=== PATIENT | female | born 1985 | race Caucasian/White ===

== ENCOUNTER 2016-08-03 09:22 | Inpatient (IN) | payer BC, MEDICAID ==
[2016-08-03] MEDS ORDERED: Lactated Ringers 1,000 ML IV SCH (10:00)
[2016-08-03] MEDS ORDERED: Ondansetron 4 MG/2 ML SDV IVPUSH PRN (10:26)
[2016-08-03] MEDS ORDERED: Penicillin G Potassium 5 MILLUNITS in Sodium Chloride 0.9% 100 ML IV ONE ×2 (11:00)
[2016-08-03] MEDS ORDERED: Lanolin 100% Cream 40 GM Tube TOP PRN (12:02)
[2016-08-03] MEDS ORDERED: Acetaminophen/oxyCODONE 325-5 MG Tab PO PRN (12:02)
[2016-08-03] MEDS ORDERED: Acetaminophen 325 MG Tab PO PRN (12:02)
--- NOTE | 2016-08-03 12:16 | PCM.LDHP ---
L&D History of Present Illness - General Date of Service: 08/03/16 (labor) Admit Problem/Dx: Patient Status Order with Admit Dx/Problem 08/03/16 12:03 Patient Status [ADT] Routine Patient Status: Admit to Inpatient Admission Diagnosis/Problem: Reason for Admit: labor Nurse Unit Type: Labor and Delivery Admitting Physician: Sharon Gudino Attending Physician: Sharon Gudino Admission Diagnosis/Problem Admission Diagnosis/Problem Source of Information: Patient History Limitations: Reports: No limitations - History of Present Illness Introduction:: This 30 year old G1 who is 36 1/7 weeks gestation present to clinic for follow up on BPP nad concerns for IUGR. Has GDM well controlled and is a smoker. Had been smith since early AM and contractions are painful. Ultrasound showed fetus to be in the 10% for growth measures 6 weeks less than gestational age. On cervical exam 375/0 smith every 3-4 monitor for labor. Discussed case with Dr. Christopher and she will attend as needed. GBS swab done at clinic. Will cover with antibiotics. Timing/Duration: Reports: minutes: (3-4) Location, : Reports: Lower back Quality: Reports: Ache, Pressure Severity: severe Improves with: Reports: None Worsens with: Reports: None - Related Data Allergies/Adverse Reactions: Allergies Allergy/AdvReac Type Severity Reaction Status Date / Time No Known Allergies Allergy Verified 08/03/16 09:37 Home Medications: Home Meds Cinnamon Bark [Cinnamon] 500 mg PO DAILY 08/03/16 [History] Ergocalciferol (Vitamin D2) [Vitamin D] 400 unit PO DAILY 08/03/16 [History] PNV95/Ferrous Fumarate/FA [Prenavite Tablet] 1 each PO DAILY 08/03/16 [History] Past Medical History [employer] History: Reports: Polycystic Ovaries, : 1 Para: 0 LMP (Approximate): ([facility] 09/01/16) Endocrine/Metabolic History: Reports: Diabetes, gestational - Past Surgical History HEENT Surgical History: Reports: Adenoidectomy, Tonsillectomy Other Respiratory Surgeries/Procedures: smoker; 3-4 cigs/day H&P Review of Systems - Review of Systems: Review Of Systems: See Below General: Reports: no symptoms HEENT: Reports: no symptoms Pulmonary: Reports: no symptoms Cardiovascular: Reports: no symptoms Gastrointestinal: Reports: No symptoms, Other (blood pressure up and being monitored) Genitourinary: Reports: no symptoms Musculoskeletal: Reports: no symptoms Skin: Reports: no symptoms Psychiatric: Reports: no symptoms Neurological: Reports: no symptoms Hematologic/Lymphatic: Reports: no symptoms Immunologic: Reports: no symptoms L&D Exam - Exam Exam: See Below - Vital Signs Weight: 163 lb - OB Specific Contraction Intensity: Strong movement: active heart tones: present heart tones per min: 140 Presentation: Vertex Estimated Weight: 3 pounds - Leahy Score Leahy Score Cervix Position: Anterior Leahy Score Consistency: Soft Leahy Score Effacement: 51-70% Leahy Score Dilation: 3-4 cm Leahy Score 's Station: -1 ,0 Leahy Score Total: 10 - Exam General: alert, oriented HEENT: PERRLA, Conjunctiva clear, Mucosa moist & pink Neck: supple Lungs: Clear to auscultation, Normal respiratory effort Cardiovascular: regular rate, regular rhythm Abdomen: normal bowel sounds, soft Rectal Exam: Normal exam Genitourinary: Normal external exam Back Exam: normal inspection, full range of motion Extremities: normal inspection Skin: warm, dry, intact Neurological: cranial nerves intact, reflexes equal bilateral Psychiatric: alert, normal affect, normal mood - Patient Data Lab Results last 24 hrs: Laboratory Results - last 24 hr 08/03/16 08/03/16 08/03/16 Range/Units 10:02 10:23 11:02 WBC 15.3 H (4.5-11.0) K/uL RBC 4.90 (3.30-5.50) M/uL Hgb 15.8 H (12.0-15.0) g/dL Hct 45.1 (36.0-48.0) % MCV 92 (80-98) fL MCH 32 H (27-31) pg MCHC 35 (32-36) % Plt Count 166 (150-400) K/uL Uric Acid 4.7 (2.6-6.2) mg/dL Total Bilirubin (0.2-1.0) mg/dL Direct Bilirubin (0.0-0.2) mg/dL Indirect Bilirubin AST (15-37) U/L ALT (12-78) U/L Alkaline Phosphatase (46-116) U/L Creatine Kinase 45 (26-192) U/L Total Protein (6.4-8.2) g/dL Albumin (3.4-5.0) g/dL Globulin (2.3-3.5) g/dL Albumin/Globulin Ratio (1.2-2.2) Urine Color Yellow Urine Appearance Slightly cloudy Urine pH 7.0 (4.5-8.0) Ur Specific [place] 1.010 (1.008-1.030) Urine Protein Trace (NEGATIVE) mg/dL Urine Glucose (UA) Normal (NEGATIVE) mg/dL Urine Ketones Negative (NEGATIVE) mg/dL Urine Occult Blood Negative (NEGATIVE) Urine Nitrite Negative (NEGATIVE) Urine Bilirubin Negative (NEGATIVE) Urine Urobilinogen Normal (NORMAL) mg/dL Ur Leukocyte Esterase Negative (NEGATIVE) Urine RBC Not seen (0-5) Urine WBC Not seen (0-5) Ur Epithelial Cells Moderate Amorphous Sediment Few Urine Bacteria Few Urine Mucus Moderate // Range/Units 11:10 WBC (4.5-11.0) K/uL RBC (3.30-5.50) M/uL Hgb (12.0-15.0) g/dL Hct (36.0-48.0) % MCV (80-98) fL MCH (27-31) pg MCHC (32-36) % Plt Count (150-400) K/uL Uric Acid (2.6-6.2) mg/dL Total Bilirubin 0.2 (0.2-1.0) mg/dL Direct Bilirubin 0.08 (0.0-0.2) mg/dL Indirect Bilirubin TNP AST 21 (15-37) U/L ALT 16 (12-78) U/L Alkaline Phosphatase 95 (46-116) U/L Creatine Kinase (26-192) U/L Total Protein 6.7 (6.4-8.2) g/dL Albumin 3.0 L (3.4-5.0) g/dL Globulin 3.7 H (2.3-3.5) g/dL Albumin/Globulin Ratio 0.8 L (1.2-2.2) Urine Color Urine Appearance Urine pH (4.5-8.0) Ur Specific [place] (1.008-1.030) Urine Protein (NEGATIVE) mg/dL Urine Glucose (UA) (NEGATIVE) mg/dL Urine Ketones (NEGATIVE) mg/dL Urine Occult Blood (NEGATIVE) Urine Nitrite (NEGATIVE) Urine Bilirubin (NEGATIVE) Urine Urobilinogen (NORMAL) mg/dL Ur Leukocyte Esterase (NEGATIVE) Urine RBC (0-5) Urine WBC (0-5) Ur Epithelial Cells Amorphous Sediment Urine Bacteria Urine Mucus Result Diagrams: 08/03/16 10:02 - Problem List (1) GDM (gestational diabetes mellitus), class A1 SNOMED Code(s): 89927021 ICD Code: O24.410 - GESTATIONAL DIABETES MELLITUS IN , DIET CONTROLLED Status: Acute Current Visit: Yes (2) IUGR (intrauterine growth retardation) of SNOMED Code(s): 34126333, 40802056 ICD Code: P05.9 - AFFECTED BY SLOW INTRAUTERINE GROWTH, UNSPECIFIED Status: Acute Current Visit: No Problem List Initiated/Reviewed/Updated: Yes Orders Last 24hrs: Active Orders 24 hr Category Date Time Status Patient Status [ADT] Routine ADT 08/03/16 12:03 Ordered Antiembolic Devices [RC] .Routine Care 08/03/16 12:05 Ordered May Shower [RC] ASDIRECTED Care 08/03/16 12:02 Ordered OB Check [OM.PC] Click to Edit Care 08/03/16 09:40 Ordered Up ad Belle [RC] ASDIRECTED Care 08/03/16 12:02 Ordered VTE/DVT Education [RC] Click to Edit Care 08/03/16 12:05 Ordered Vital Signs [RC] PFP Care 08/03/16 12:03 Ordered Regular Diet [DIET] Diet 08/03/16 Lunch Ordered CBC WITH AUTO DIFF [HEME] AM Lab 08/04/16 05:11 Ordered Acetaminophen [Tylenol] Med 08/03/16 12:02 Ordered 650 mg PO Q4H PRN Acetaminophen/oxyCODONE [Percocet 325-5 MG] Med 08/03/16 12:02 Ordered 1 tab PO Q4H PRN Lactated Ringers [Ringers, Lactated] 1,000 ml Med 08/03/16 10:00 Active IV ASDIRECTED Lanolin [Lansinoh HPA] Med 08/03/16 12:02 Ordered 1 gm TOP ASDIRECTED PRN Ondansetron [Zofran] Med 08/03/16 10:26 Active 4 mg IVPUSH Q4H PRN Oxytocin/Normal Saline [Pitocin in NS 20 Units/1,000 ML Med 08/03/16 10:30 Active ] 20 unit in 1,000 ml IV ASDIRECTED Oxytocin/Normal Saline [Pitocin in NS 20 Units/1,000 ML Med 08/03/16 12:09 Ordered ] 20 unit in 1,000 ml IV ONETIME Penicillin G Potassium [Pfizerpen] 2.5 millunits Med 08/03/16 15:00 Active Sodium Chloride 0.9% [Normal Saline] 50 ml IV Q4H Assess Lochia [WOMSER] Per Unit Routine Ot 08/03/16 12:02 Ordered Assess Uterine Involution [WOMSER] Per Unit Routine Ot 08/03/16 12:02 Ordered DVT/VTE Prophylaxis Reflex [OM.PC] Routine Ot 08/03/16 12:02 Ordered Ice Therapy [OM.PC] Per Unit Routine Ot 08/03/16 12:04 Ordered Perineal Care [OM.PC] Per Unit Routine Ot 08/03/16 12:04 Ordered Peripheral IV Discontinue [OM.PC] Routine Ot 08/03/16 12:04 Ordered Sitz Bath [OM.PC] Per Unit Routine Ot 08/03/16 12:04 Ordered Resuscitation Status Routine Resus Stat 08/03/16 12:02 Ordered Medication Orders Acetaminophen (Tylenol) 650 mg PO Q4H PRN PRN Reason: mild pain or fever Emollient Ointment (Lansinoh Hpa) 1 gm TOP ASDIRECTED PRN PRN Reason: Sore Nipples Lactated Ringer's (Ringers, Lactated) 1,000 mls @ 100 mls/hr IV ASDIRECTED [facility] Last Admin: 08/03/16 10:43 Dose: 100 mls/hr Penicillin G Potassium 2.5 (millunits/ Sodium Chloride) 50 mls @ 100 mls/hr IV Q4H [facility] Oxytocin/Sodium Chloride (Pitocin In Ns 20 Units/1,000 Ml) 20 unit in 1,000 mls @ 500 mls/hr IV ASDIRECTED [facility] PRN Reason: Protocol Oxytocin/Sodium Chloride (Pitocin In Ns 20 Units/1,000 Ml) 20 unit in 1,000 mls @ 999 mls/hr IV ONETIME ONE PRN Reason: Protocol Stop: 08/03/16 13:09 Ondansetron HCl (Zofran) 4 mg IVPUSH Q4H PRN PRN Reason: Nausea/Vomiting Last Admin: 08/03/16 10:42 Dose: 4 mg Oxycodone/Acetaminophen (Percocet 325-5 Mg) 1 tab PO Q4H PRN PRN Reason: Pain (moderate 4-6) Assessment/Plan Comment:: Monitor for active labor start pencillin for unknown GBS Run IV LR at 100cc/hr Draw [facility] labs prepare for delivery
--- NOTE | 2016-08-03 12:30 | PCM.DEL ---
L & D Note - General Info Date of Service: 08/03/16 (delivery) Mother's Due Date: 08/30/16 - Delivery Note Labor: spontaneous Delivery Outcome: Livebirth Infant Delivery Method: Spontaneous Vaginal Delivery Presentation: Vertex Nuchal cord: none Anesthesia Type: None Amniotic Fluid Description: Clear Episiotomy Type: None Laceration: none Placenta: intact, spontaneous Cord: 3 vessels Estimated blood loss: 100 Resuscitation needed: Yes : bulb syringe, stimulated, warmed, warmer used Provider: Sharon Gudino Score 1 min: 6 Score 5 min: 8 Score 10 min: 8 Second Stage Interventions: Reports: Encouragement Given, Pushing Effectively Delivery Comments (Free Text/Narrative):: This 30 year old G1 now P1 delivered a viable female over an intact perineum at 1131 in BEN position. The cord was clamped and cut and given to the pedestrian she was starting to cry at the time of delivery. weight 3.2 pounds 1441 grams. three vessel cord. Apgars 6,8,8. PPV on and off times 1 minute, she actually transitioned well with normal for age O2 sats. Placenta was expressed spontaneously intactalonzo. No lacerations of cervix, vagina,rectum or perineum, placenta to pathology EBL 100cc Mother to post and baby to one to one nursing times 24 hours. First stage 9795-3178 Second stage 0287-1073 Third stage 3415-6644 - General Info Date of Service: 08/03/16 Admission Dx/Problem (Free Text): Patient Status Order with Admit Dx/Problem 08/03/16 12:03 Patient Status [ADT] Routine Patient Status: Admit to Inpatient Admission Diagnosis/Problem: Reason for Admit: labor Nurse Unit Type: Labor and Delivery Admitting Physician: Sharon Gudino Attending Physician: Sharon Gudino Admission Diagnosis/Problem Admission Diagnosis/Problem Functional Status: Reports: pain controlled - Review of Systems General: Reports: no symptoms HEENT: Reports: no symptoms Pulmonary: Reports: no symptoms Cardiovascular: Reports: no symptoms Gastrointestinal: Reports: No symptoms Genitourinary: Reports: no symptoms Musculoskeletal: Reports: no symptoms Skin: Reports: no symptoms Neurological: Reports: no symptoms Psychiatric: Reports: no symptoms - Patient Data Weight - most recent: 163 lb Lab Results last 24 hrs: Laboratory Results - last 24 hr 08/03/16 08/03/16 08/03/16 Range/Units 10:02 10:23 11:02 WBC 15.3 H (4.5-11.0) K/uL RBC 4.90 (3.30-5.50) M/uL Hgb 15.8 H (12.0-15.0) g/dL Hct 45.1 (36.0-48.0) % MCV 92 (80-98) fL MCH 32 H (27-31) pg MCHC 35 (32-36) % Plt Count 166 (150-400) K/uL Uric Acid 4.7 (2.6-6.2) mg/dL Total Bilirubin (0.2-1.0) mg/dL Direct Bilirubin (0.0-0.2) mg/dL Indirect Bilirubin AST (15-37) U/L ALT (12-78) U/L Alkaline Phosphatase (46-116) U/L Creatine Kinase 45 (26-192) U/L Total Protein (6.4-8.2) g/dL Albumin (3.4-5.0) g/dL Globulin (2.3-3.5) g/dL Albumin/Globulin Ratio (1.2-2.2) Urine Color Yellow Urine Appearance Slightly cloudy Urine pH 7.0 (4.5-8.0) Ur Specific [place] 1.010 (1.008-1.030) Urine Protein Trace (NEGATIVE) mg/dL Urine Glucose (UA) Normal (NEGATIVE) mg/dL Urine Ketones Negative (NEGATIVE) mg/dL Urine Occult Blood Negative (NEGATIVE) Urine Nitrite Negative (NEGATIVE) Urine Bilirubin Negative (NEGATIVE) Urine Urobilinogen Normal (NORMAL) mg/dL Ur Leukocyte Esterase Negative (NEGATIVE) Urine RBC Not seen (0-5) Urine WBC Not seen (0-5) Ur Epithelial Cells Moderate Amorphous Sediment Few Urine Bacteria Few Urine Mucus Moderate 08/03/16 Range/Units 11:10 WBC (4.5-11.0) K/uL RBC (3.30-5.50) M/uL Hgb (12.0-15.0) g/dL Hct (36.0-48.0) % MCV (80-98) fL MCH (27-31) pg MCHC (32-36) % Plt Count (150-400) K/uL Uric Acid (2.6-6.2) mg/dL Total Bilirubin 0.2 (0.2-1.0) mg/dL Direct Bilirubin 0.08 (0.0-0.2) mg/dL Indirect Bilirubin TNP AST 21 (15-37) U/L ALT 16 (12-78) U/L Alkaline Phosphatase 95 (46-116) U/L Creatine Kinase (26-192) U/L Total Protein 6.7 (6.4-8.2) g/dL Albumin 3.0 L (3.4-5.0) g/dL Globulin 3.7 H (2.3-3.5) g/dL Albumin/Globulin Ratio 0.8 L (1.2-2.2) Urine Color Urine Appearance Urine pH (4.5-8.0) Ur Specific [place] (1.008-1.030) Urine Protein (NEGATIVE) mg/dL Urine Glucose (UA) (NEGATIVE) mg/dL Urine Ketones (NEGATIVE) mg/dL Urine Occult Blood (NEGATIVE) Urine Nitrite (NEGATIVE) Urine Bilirubin (NEGATIVE) Urine Urobilinogen (NORMAL) mg/dL Ur Leukocyte Esterase (NEGATIVE) Urine RBC (0-5) Urine WBC (0-5) Ur Epithelial Cells Amorphous Sediment Urine Bacteria Urine Mucus Med Orders - Current: Current Medications Acetaminophen (Tylenol) 650 mg PO Q4H PRN PRN Reason: mild pain or fever Emollient Ointment (Lansinoh Hpa) 0 gm TOP ASDIRECTED PRN PRN Reason: Sore Nipples Lactated Ringer's (Ringers, Lactated) 1,000 mls @ 100 mls/hr IV ASDIRECTED [facility] Last Admin: 08/03/16 10:43 Dose: 100 mls/hr Penicillin G Potassium 2.5 (millunits/ Sodium Chloride) 50 mls @ 100 mls/hr IV Q4H [facility] Oxytocin/Sodium Chloride (Pitocin In Ns 20 Units/1,000 Ml) 20 unit in 1,000 mls @ 500 mls/hr IV ASDIRECTED [facility] PRN Reason: Protocol Oxytocin/Sodium Chloride (Pitocin In Ns 20 Units/1,000 Ml) 20 unit in 1,000 mls @ 999 mls/hr IV ONETIME ONE PRN Reason: Protocol Stop: 08/03/16 13:30 Ondansetron HCl (Zofran) 4 mg IVPUSH Q4H PRN PRN Reason: Nausea/Vomiting Last Admin: 08/03/16 10:42 Dose: 4 mg Oxycodone/Acetaminophen (Percocet 325-5 Mg) 1 tab PO Q4H PRN PRN Reason: Pain (moderate 4-6) Discontinued Medications Penicillin G Potassium 5 (millunits/ Sodium Chloride) 100 mls @ 100 mls/hr IV ONETIME ONE Stop: 08/03/16 11:59 Last Admin: 08/03/16 10:43 Dose: 100 mls/hr - Exam General: alert, oriented HEENT: Pupils equal, Pupils reactive Neck: supple Lungs: Clear to auscultation, Normal respiratory effort Cardiovascular: regular rate, regular rhythm Abdomen: bowel sounds present, soft, no tenderness (Female) Exam: Normal external exam, Normal speculum exam Back Exam: normal inspection, full range of motion Extremities: no edema Skin: warm, dry Wound/Incisions: healing well Neurological: no new focal deficit Psy/Mental Status: alert, normal affect, normal mood - Problem List & Annotations (1) GDM (gestational diabetes mellitus), class A1 SNOMED Code(s): 78530912 Code(s): O24.410 - GESTATIONAL DIABETES MELLITUS IN , DIET CONTROLLED Status: Acute Current Visit: Yes (2) IUGR (intrauterine growth retardation) of SNOMED Code(s): 32731588, 91715357 Code(s): P05.9 - AFFECTED BY SLOW INTRAUTERINE GROWTH, UNSPECIFIED Status: Acute Current Visit: No - Problem List Review Problem List Initiated/Reviewed/Updated: Yes - My Orders Last 24 Hours: My Active Orders 08/03/16 09:40 OB Check [OM.PC] Click to Edit 08/03/16 10:00 Lactated Ringers [Ringers, Lactated] 1,000 ml IV ASDIRECTED 08/03/16 10:26 Ondansetron [Zofran] 4 mg IVPUSH Q4H PRN 08/03/16 10:30 Oxytocin/Normal Saline [Pitocin in NS 20 Units/1,000 ML] 20 unit in 1,000 ml IV ASDIRECTED 08/03/16 12:02 May Shower [RC] ASDIRECTED Up ad Belle [RC] ASDIRECTED Acetaminophen [Tylenol] 650 mg PO Q4H PRN Acetaminophen/oxyCODONE [Percocet 325-5 MG] 1 tab PO Q4H PRN Lanolin [Lansinoh HPA] 1 gm TOP ASDIRECTED PRN Assess Lochia [WOMSER] Per Unit Routine Assess Uterine Involution [WOMSER] Per Unit Routine DVT/VTE Prophylaxis Reflex [OM.PC] Routine Resuscitation Status Routine 08/03/16 12:03 Patient Status [ADT] Routine Vital Signs [RC] PFP 08/03/16 12:04 Ice Therapy [OM.PC] Per Unit Routine Perineal Care [OM.PC] Per Unit Routine Peripheral IV Discontinue [OM.PC] Routine Sitz Bath [OM.PC] Per Unit Routine 08/03/16 12:05 Antiembolic Devices [RC] .Routine VTE/DVT Education [RC] Click to Edit 08/03/16 12:09 Oxytocin/Normal Saline [Pitocin in NS 20 Units/1,000 ML] 20 unit in 1,000 ml IV ONETIME 08/03/16 15:00 Penicillin G Potassium [Pfizerpen] 2.5 millunits Sodium Chloride 0.9% [Normal Saline] 50 ml IV Q4H 08/03/16 Lunch Regular Diet [DIET] 08/04/16 05:11 CBC WITH AUTO DIFF [HEME] AM - Assessment Assessment:: 08/03/16 This 30 year old G1 now P1 1141 gm female IUGR GDM Smoker - Plan Plan:: Monitor for active labor start pencillin for unknown GBS Run IV LR at 100cc/hr Draw [facility] labs prepare for delivery 08/03/16 Routine cares Check am CBC monitor blood pressures may eat regular diet 48 hour stay, unknown GBS support ABO A pos Rubella Immune
[2016-08-03] MEDS ORDERED: Penicillin G Potassium 2.5 MILLUNITS in Sodium Chloride 0.9% 100 ML IV SCH (14:30)
[2016-08-03] MEDS ORDERED: Penicillin G Potassium 2.5 MILLUNITS in Sodium Chloride 0.9% 50 ML IV SCH (15:00)
--- NOTE | 2016-08-03 17:55 | PCM.PNPP ---
- General Info Date of Service: 08/03/16 (discharge) Admission Dx/Problem (Free Text): Patient Status Order with Admit Dx/Problem 08/03/16 12:03 Patient Status [ADT] Routine Patient Status: Admit to Inpatient Admission Diagnosis/Problem: Reason for Admit: labor Nurse Unit Type: Labor and Delivery Admitting Physician: Sharon Gudino Attending Physician: Sharon Gudino Admission Diagnosis/Problem Admission Diagnosis/Problem Functional Status: Reports: pain controlled - Review of Systems General: Reports: no symptoms HEENT: Reports: no symptoms Pulmonary: Reports: no symptoms Cardiovascular: Reports: no symptoms Gastrointestinal: Reports: No symptoms Genitourinary: Reports: no symptoms Musculoskeletal: Reports: no symptoms Skin: Reports: no symptoms Neurological: Reports: no symptoms Psychiatric: Reports: no symptoms - General Info Date of Service: 08/03/16 - Patient Data Vital Signs - most recent: Last Vital Signs Temp 97.6 F 08/03/16 15:30 Pulse 84 08/03/16 15:30 Resp 16 08/03/16 15:30 BP 129/77 08/03/16 15:30 Pulse Ox 95 08/03/16 15:30 Weight - most recent: 163 lb I&O - last 24 hours: Intake & Output 08/03/16 08/03/16 08/03/16 06:59 14:59 22:59 Intake Total 1100 Output Total 400 Balance 1100 -400 Lab Results - last 24 hrs: Laboratory Results - last 24 hr 08/03/16 08/03/16 08/03/16 Range/Units 10:02 10:23 11:02 WBC 15.3 H (4.5-11.0) K/uL RBC 4.90 (3.30-5.50) M/uL Hgb 15.8 H (12.0-15.0) g/dL Hct 45.1 (36.0-48.0) % MCV 92 (80-98) fL MCH 32 H (27-31) pg MCHC 35 (32-36) % Plt Count 166 (150-400) K/uL Uric Acid 4.7 (2.6-6.2) mg/dL Total Bilirubin (0.2-1.0) mg/dL Direct Bilirubin (0.0-0.2) mg/dL Indirect Bilirubin AST (15-37) U/L ALT (12-78) U/L Alkaline Phosphatase (46-116) U/L Creatine Kinase 45 (26-192) U/L Total Protein (6.4-8.2) g/dL Albumin (3.4-5.0) g/dL Globulin (2.3-3.5) g/dL Albumin/Globulin Ratio (1.2-2.2) Urine Color Yellow Urine Appearance Slightly cloudy Urine pH 7.0 (4.5-8.0) Ur Specific [place] 1.010 (1.008-1.030) Urine Protein Trace (NEGATIVE) mg/dL Urine Glucose (UA) Normal (NEGATIVE) mg/dL Urine Ketones Negative (NEGATIVE) mg/dL Urine Occult Blood Negative (NEGATIVE) Urine Nitrite Negative (NEGATIVE) Urine Bilirubin Negative (NEGATIVE) Urine Urobilinogen Normal (NORMAL) mg/dL Ur Leukocyte Esterase Negative (NEGATIVE) Urine RBC Not seen (0-5) Urine WBC Not seen (0-5) Ur Epithelial Cells Moderate Amorphous Sediment Few Urine Bacteria Few Urine Mucus Moderate Urine Opiates Screen (NEGATIVE) Ur Oxycodone Screen (NEGATIVE) Urine Methadone Screen (NEGATIVE) Ur Propoxyphene Screen (NEGATIVE) Ur Barbiturates Screen (NEGATIVE) Ur Tricyclics Screen (NEGATIVE) Ur Phencyclidine Scrn (NEGATIVE) Ur Amphetamine Screen (NEGATIVE) U Methamphetamines Scrn (NEGATIVE) Urine MDMA Screen (NEGATIVE) U Benzodiazepines Scrn (NEGATIVE) U Cocaine Metab Screen (NEGATIVE) U Marijuana (THC) Screen (NEGATIVE) 08/03/16 08/03/16 Range/Units 11:10 12:33 WBC (4.5-11.0) K/uL RBC (3.30-5.50) M/uL Hgb (12.0-15.0) g/dL Hct (36.0-48.0) % MCV (80-98) fL MCH (27-31) pg MCHC (32-36) % Plt Count (150-400) K/uL Uric Acid (2.6-6.2) mg/dL Total Bilirubin 0.2 (0.2-1.0) mg/dL Direct Bilirubin 0.08 (0.0-0.2) mg/dL Indirect Bilirubin TNP AST 21 (15-37) U/L ALT 16 (12-78) U/L Alkaline Phosphatase 95 (46-116) U/L Creatine Kinase (26-192) U/L Total Protein 6.7 (6.4-8.2) g/dL Albumin 3.0 L (3.4-5.0) g/dL Globulin 3.7 H (2.3-3.5) g/dL Albumin/Globulin Ratio 0.8 L (1.2-2.2) Urine Color Urine Appearance Urine pH (4.5-8.0) Ur Specific [place] (1.008-1.030) Urine Protein (NEGATIVE) mg/dL Urine Glucose (UA) (NEGATIVE) mg/dL Urine Ketones (NEGATIVE) mg/dL Urine Occult Blood (NEGATIVE) Urine Nitrite (NEGATIVE) Urine Bilirubin (NEGATIVE) Urine Urobilinogen (NORMAL) mg/dL Ur Leukocyte Esterase (NEGATIVE) Urine RBC (0-5) Urine WBC (0-5) Ur Epithelial Cells Amorphous Sediment Urine Bacteria Urine Mucus Urine Opiates Screen Negative (NEGATIVE) Ur Oxycodone Screen Negative (NEGATIVE) Urine Methadone Screen Negative (NEGATIVE) Ur Propoxyphene Screen Negative (NEGATIVE) Ur Barbiturates Screen Negative (NEGATIVE) Ur Tricyclics Screen Negative (NEGATIVE) Ur Phencyclidine Scrn Negative (NEGATIVE) Ur Amphetamine Screen Negative (NEGATIVE) U Methamphetamines Scrn Negative (NEGATIVE) Urine MDMA Screen Negative (NEGATIVE) U Benzodiazepines Scrn Negative (NEGATIVE) U Cocaine Metab Screen Negative (NEGATIVE) U Marijuana (THC) Screen Negative (NEGATIVE) Med Orders - Current: Current Medications Acetaminophen (Tylenol) 650 mg PO Q4H PRN PRN Reason: mild pain or fever Last Admin: 08/03/16 15:49 Dose: 650 mg Emollient Ointment (Lansinoh Hpa) 0 gm TOP ASDIRECTED PRN PRN Reason: Sore Nipples Lactated Ringer's (Ringers, Lactated) 1,000 mls @ 100 mls/hr IV ASDIRECTED STEPHANIA Last Admin: 08/03/16 10:43 Dose: 100 mls/hr Oxytocin/Sodium Chloride (Pitocin In Ns 20 Units/1,000 Ml) 20 unit in 1,000 mls @ 500 mls/hr IV ASDIRECTED STEPHANIA PRN Reason: Protocol Ondansetron HCl (Zofran) 4 mg IVPUSH Q4H PRN PRN Reason: Nausea/Vomiting Last Admin: 08/03/16 10:42 Dose: 4 mg Oxycodone/Acetaminophen (Percocet 325-5 Mg) 1 tab PO Q4H PRN PRN Reason: Pain (moderate 4-6) Discontinued Medications Penicillin G Potassium 5 (millunits/ Sodium Chloride) 100 mls @ 100 mls/hr IV ONETIME ONE Stop: 08/03/16 11:59 Last Admin: 08/03/16 10:43 Dose: 100 mls/hr Penicillin G Potassium 2.5 (millunits/ Sodium Chloride) 50 mls @ 100 mls/hr IV Q4H [facility] Last Admin: 08/03/16 16:02 Dose: Not Given Oxytocin/Sodium Chloride (Pitocin In Ns 20 Units/1,000 Ml) 20 unit in 1,000 mls @ 999 mls/hr IV ONETIME ONE PRN Reason: Protocol Stop: 08/03/16 13:30 Last Admin: 08/03/16 11:33 Dose: 999 mls/hr, 999 mls/hr - Infant Interaction Infant Disposition, : in Room with Family Interaction: Holding Infant Feeding: Bottle Fed Infant, Breastfed Infant; Nursed Well Support Person: Significant Other - Recovery Exam Fundal Tone: Firm Fundal Level: At Umbilicus Fundal Placement: Right Lochia Amount: Small Lochia Color: Rubra/Red Perineum Description: Intact, Minimal Bruising/Swelling Episiotomy/Laceration: None Bladder Status: Voiding Urinary Elimination: Voided - Exam General: alert, oriented HEENT: Pupils equal Neck: supple Lungs: Clear to auscultation, Normal respiratory effort Cardiovascular: regular rate, regular rhythm Abdomen: bowel sounds present, soft, no tenderness, no distension Extremities: no edema Skin: warm, dry, intact Wound/Incisions: healing well Neurological: no new focal deficit Psy/Mental Status: alert, normal affect, normal mood - Problem List & Annotations (1) GDM (gestational diabetes mellitus), class A1 SNOMED Code(s): 74917759 Code(s): O24.410 - GESTATIONAL DIABETES MELLITUS IN , DIET CONTROLLED Status: Acute Current Visit: Yes (2) IUGR (intrauterine growth retardation) of SNOMED Code(s): 20046372, 40383234 Code(s): P05.9 - AFFECTED BY SLOW INTRAUTERINE GROWTH, UNSPECIFIED Status: Acute Current Visit: No - Problem List Review Problem List Initiated/Reviewed/Updated: Yes - My Orders Last 24 Hours: My Active Orders 08/03/16 09:40 OB Check [OM.PC] Click To Edit 08/03/16 10:00 Lactated Ringers [Ringers, Lactated] 1,000 ml IV ASDIRECTED 08/03/16 10:26 Ondansetron [Zofran] 4 mg IVPUSH Q4H PRN 08/03/16 10:30 Oxytocin/Normal Saline [Pitocin in NS 20 Units/1,000 ML] 20 unit in 1,000 ml IV ASDIRECTED 08/03/16 12:02 May Shower [RC] ASDIRECTED Up ad Belle [RC] ASDIRECTED Acetaminophen [Tylenol] 650 mg PO Q4H PRN Acetaminophen/oxyCODONE [Percocet 325-5 MG] 1 tab PO Q4H PRN Lanolin [Lansinoh HPA] 0 gm TOP ASDIRECTED PRN Assess Lochia [WOMSER] Per Unit Routine Assess Uterine Involution [WOMSER] Per Unit Routine DVT/VTE Prophylaxis Reflex [OM.PC] Routine Resuscitation Status Routine 08/03/16 12:03 Patient Status [ADT] Routine Vital Signs [RC] PFP 08/03/16 12:04 Ice Therapy [OM.PC] Per Unit Routine Perineal Care [OM.PC] Per Unit Routine Peripheral IV Discontinue [OM.PC] Routine Sitz Bath [OM.PC] Per Unit Routine 08/03/16 12:05 Antiembolic Devices [RC] .Routine 08/03/16 Lunch Regular Diet [DIET] 08/04/16 05:11 CBC WITH AUTO DIFF [HEME] AM - Assessment Assessment:: 08/03/16 This 30 year old G1 now P1 1141 gm female IUGR GDM Smoker 08/03/16 for delivery at 36 weeks for IUGR infant Breast and bottle feeding - Plan Plan:: Monitor for active labor start pencillin for unknown GBS Run IV LR at 100cc/hr Draw PI labs prepare for delivery 08/03/16 Routine cares Check am CBC monitor blood pressures may eat regular diet 48 hour stay, unknown GBS support ABO A pos Rubella Immune Discharge mom so she can be with her baby in [place] She is stable and doing well Blood pressures are normal. no fever, bleeding light To see me in 6 weeks for a post visit
[2016-08-03 22:01] VITALS: BP 133/76
== END 2016-08-03 20:30 | disposition home or self-care (01) | DRG 560 ==
LOC: JP.OBCHECK 09:22 → JP.OB 09:23 → OBSVTOIN 11:31 → JP.MS 12:37
PROVIDERS: ADMIT Nurse Practitioner Family; ATTEND Nurse Practitioner Family
PROC: 10E0XZZ Delivery of Products of Conception, External Approach (ICD-10-PCS; principal; 2016-08-03)
DX: O60.14X0 Preterm labor third trimester with preterm delivery third trimester, not applicable or unspecified (principal); Z3A.36 36 weeks gestation of pregnancy; Z37.0 Single live birth; O24.410 Gestational diabetes mellitus in pregnancy, diet controlled; O99.330 Smoking (tobacco) complicating pregnancy, unspecified trimester; O36.5990 Maternal care for other known or suspected poor fetal growth, unspecified trimester, not applicable or unspecified
CPT/HCPCS: 36415; 80076; 80305; 81001; 82550; 84550; 85027; 88307; 99211; A9270-GY; J2405; J2540; J2590; J7030; J7120

== ENCOUNTER 2017-01-27 18:11 | Emergency (ER) | payer BC, MEDICAID, OTHER ==
[2017-01-27 20:34] VITALS: BP 150/94
--- NOTE | 2017-01-27 20:47 | EDM.PDOC ---
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 Was working up on 2nd floor. Incident occurred about 4:30pm. Has not taken anything for pain. Rates pain a 6 to low back with radiation down to left leg to knee at the time of exam. Also with shoulder tightness on the left side. 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 No history of injury to back. Does have a 5 month old at home. Is not . Onset: Today, Sudden Onset Date: 01/27/17 Onset Time: 16:30 Duration: Constant Location: Reports: Back Quality: Reports: Ache, Burning Severity: Moderate Improves with: Reports: Rest Worsens with: Reports: None Context: Reports: Lifting Associated Symptoms: Reports: No Other Symptoms Left Lower Back Pain Score (Numeric/FACES): 6 - Related Data Allergies Allergy/AdvReac Type Severity Reaction Status Date / Time No Known Allergies Allergy Verified 01/27/17 20:24 Home Meds: Home Meds *Bc Pills 1 tab PO DAILY 01/27/17 [History] Past Medical History [employer]ER History: Reports: Polycystic Ovaries, , Spontaneous Musculoskeletal History: Reports: Fracture Other Musculoskeletal History: Bilateral arms Endocrine/Metabolic History: Reports: Diabetes, Gestational - Infectious Disease History Infectious Disease History: Reports: Chicken Pox - Past Surgical History HEENT Surgical History: Reports: Adenoidectomy, Tonsillectomy Other Respiratory Surgeries/Procedures: smoker; 3-4 cigs/day Social & Family History - Tobacco Use Smoking Status *Q: Current Every Day Smoker Years of Tobacco use: 10 Packs/Tins Daily: 0.5 Used Tobacco, but Quit: No Second Hand Smoke Exposure: Yes - Caffeine Use Caffeine Use: Reports: Coffee, Soda, Tea Other Caffeine Use: very little - Recreational Drug Use Recreational Drug Use: No ED ROS GENERAL - Review of Systems Review Of Systems: See Below Constitutional: Reports: No Symptoms HEENT: Reports: No Symptoms Respiratory: Reports: No Symptoms Cardiovascular: Reports: No Symptoms Musculoskeletal: Reports: Shoulder Pain, Back Pain Skin: Reports: No Symptoms Neurological: Reports: No Symptoms ED EXAM,LOWER BACK PAIN/INJURY - Physical Exam Exam: See Below Exam Limited By: No Limitations General Appearance: Alert, WD/WN, No Apparent Distress Respiratory/Chest: No Respiratory Distress, Lungs Clear, Normal Breath Sounds, No Accessory Muscle Use, Chest Non-Tender Cardiovascular: Normal Peripheral Pulses, Regular Rate, Rhythm, No Edema, No Gallop, No JVD, No Murmur, No Rub GI/Abdominal: Normal Bowel Sounds, Soft, Non-Tender, No Organomegaly, No Distention, No Abnormal Bruit, No Mass Extremities: Normal Inspection, Normal Range of Motion, Non-Tender, No Pedal Edema, Normal Capillary Refill, Other (pain with palpation to left SI region. ) Neurological: Alert, Normal Mood/Affect, Normal Dorsiflexion, CN II-XII Intact, Normal Plantar Flexion, Normal Gait, Normal Reflexes, No Motor/Sensory Deficits , Oriented x 3, Straight Leg Raise (L) (normal), Straight Leg Raise (R) Skin Exam: Warm, Dry, Intact, Normal Color, No Rash Lymphatic: No Adenopathy Course - Vital Signs Last Recorded V/S: Last Vital Signs Temp 97.7 F 01/27/17 20:33 Pulse 83 01/27/17 20:33 Resp 16 01/27/17 20:33 BP 150/94 H 01/27/17 20:33 Pulse Ox 97 01/27/17 20:33 Departure - Departure Time of Disposition: 20:50 Disposition: Home, Self-Care 01 Condition: Good Clinical Impression: Back strain Qualifiers: Encounter type: initial encounter Qualified Code(s): S39.012A - Strain of muscle, fascia and tendon of lower back, initial encounter - Discharge Information Instructions: Muscle Strain, [id number] Referrals: Sharon Gudino CNM [Primary Care Provider] - Additional Instructions: Discussed stretching exercises. No need for xrays at this time. Encouraged ice to back. Ketorolac 60mg IM given in ER. Pt to use Aleve 1-2 tabs with food twice daily as needed for inflammation. Flexeril 10mg po TID as needed for pain/spasm. Dose given in ER. May return to work on Monday without restriction. To return if pain not resolving. - Problem List & Annotations (1) Back strain SNOMED Code(s): 735639341 Code(s): S39.012A - STRAIN OF MUSCLE, FASCIA AND TENDON OF LOWER BACK, INIT Status: Acute Priority: Medium Current Visit: Yes Qualifiers: Encounter type: initial encounter Qualified Code(s): S39.012A - Strain of muscle, fascia and tendon of lower back, initial encounter
[2017-01-27] MEDS ORDERED: Ketorolac 60 MG/2 ML SDV IM ONE (20:49)
[2017-01-27] MEDS ORDERED: Cyclobenzaprine 10 MG Tab PO ONE (20:49)
== END 2017-01-27 21:10 | disposition home or self-care (01) ==
LOC: JP.ED 18:11
DX: S39.012A Strain of muscle, fascia and tendon of lower back, initial encounter (principal); F17.210 Nicotine dependence, cigarettes, uncomplicated; Z98.890 Other specified postprocedural states; Z79.899 Other long term (current) drug therapy; X58.XXXA Exposure to other specified factors, initial encounter
CPT/HCPCS: 96372; 99283; A9270; J1885

== ENCOUNTER 2019-01-08 20:52 | Observation (INO) | payer BC ==
[2019-01-08] MEDS ORDERED: hydrOXYzine HCl 25 MG Tab PO ONE (21:51)
[2019-01-08] MEDS ORDERED: Sodium Chloride 0.9% 10 ML SDV IV SCH (22:00)
[2019-01-08] MEDS ORDERED: Sodium Chloride 0.9% 1,000 ML IV ONE (22:30)
[2019-01-08] MEDS ORDERED: Sodium Chloride 0.9% 1,000 ML IV SCH (23:45)
[2019-01-09 07:30] VITALS: BP 133/85; PULSE 81
--- NOTE | 2019-01-09 08:02 | PCM.LDHP ---
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: Polycystic Ovaries, , Spontaneous Musculoskeletal History: Reports: Fracture Other Musculoskeletal History: Bilateral arms Endocrine/Metabolic History: Reports: Diabetes, Gestational - Infectious Disease History Infectious Disease History: Reports: Chicken Pox - Past Surgical History HEENT Surgical History: Reports: Adenoidectomy, Tonsillectomy Other Respiratory Surgeries/Procedures: smoker; 3-4 cigs/day Social & Family History - Caffeine Use Caffeine Use: Reports: Coffee, Soda, Tea Other Caffeine Use: very little H&P Review of Systems - Review of Systems: Review Of Systems: See Below General: Reports: No Symptoms HEENT: Reports: No Symptoms Pulmonary: Reports: No Symptoms Cardiovascular: Reports: No Symptoms Gastrointestinal: Reports: No Symptoms Genitourinary: Reports: No Symptoms Musculoskeletal: Reports: No Symptoms Skin: Reports: No Symptoms Psychiatric: Reports: No Symptoms Neurological: Reports: No Symptoms Hematologic/Lymphatic: Reports: No Symptoms Immunologic: Reports: No Symptoms L&D Exam - Exam Exam: See Below - Vital Signs Vital Signs: Last Vital Signs Temp 35.3 C 01/09/19 07:29 Pulse 81 01/09/19 07:29 Resp 16 01/09/19 07:29 BP 133/85 01/09/19 07:29 Pulse Ox 99 01/09/19 07:29 - OB Specific Contraction Duration (sec): 40 Contraction Frequency (min): none Contraction Intensity: Mild - Exam General: Alert, Oriented, Cooperative HEENT: PERRLA, Conjunctiva Clear, EACs Clear, EOMI, Hearing Intact, Mucosa Moist & [place], Nares Patent, Normal Nasal Septum, Posterior Pharynx Clear, TMs Clear Neck: Supple, Trachea Midline Lungs: Clear to Auscultation, Normal Respiratory Effort Cardiovascular: Regular Rate, Regular Rhythm GI/Abdominal Exam: Normal Bowel Sounds, Soft, Non-Tender, No Organomegaly, No Distention, No Abnormal Bruit, No Mass, Pelvis Stable Rectal Exam: Normal Exam, Normal Rectal Tone Genitourinary: Normal external exam, Normal bimanual exam, Normal speculum exam Back Exam: Normal Inspection, Full Range of Motion Extremities: Normal Inspection, Normal Range of Motion, Non-Tender, No Pedal Edema, Normal Capillary Refill Skin: Warm, Dry, Intact Neurological: Cranial Nerves Intact, Reflexes Equal Bilateral Psychiatric: Alert, Normal Affect, Normal Mood - Patient Data Lab Results Last 24 hrs: Laboratory Results - last 24 hr 01/08/19 01/08/19 01/08/19 Range/Units 21:02 21:20 21:40 WBC 18.1 H 17.7 H (4.5-11.0) K/uL RBC 4.53 4.65 (3.30-5.50) M/uL Hgb 14.5 14.4 (12.0-15.0) g/dL Hct 41.5 42.4 (36.0-48.0) % MCV 92 91 (80-98) fL MCH 32 H 31 (27-31) pg MCHC 35 34 (32-36) % Plt Count 151 159 (150-400) K/uL Neut % (Auto) 81 H (36-66) % Lymph % (Auto) 9 L (24-44) % [place] % (Auto) 9 H (2-6) % Eos % (Auto) 1 L (2-4) % Baso % (Auto) 0 (0-1) % Sodium (140-148) mmol/L Potassium (3.6-5.2) mmol/L Chloride (100-108) mmol/L Carbon Dioxide (21-32) mmol/L Anion Gap (5.0-14.0) mmol/L BUN (7-18) mg/dL Creatinine (0.6-1.0) mg/dL Est Cr Clr Drug Dosing Estimated GFR (MDRD) (>60) Glucose (74-106) mg/dL Calcium (8.5-10.1) mg/dL Total Bilirubin (0.2-1.0) mg/dL AST (15-37) U/L ALT (12-78) U/L Alkaline Phosphatase (46-116) U/L Lactate Dehydrogenase (82-234) U/L Total Protein (6.4-8.2) g/dL Albumin (3.4-5.0) g/dL Globulin (2.3-3.5) g/dL Albumin/Globulin Ratio (1.2-2.2) Urine Color Yellow (YELLOW) Urine Appearance Clear (CLEAR) Urine pH 7.0 (5.0-8.0) Ur Specific [place] 1.015 (1.008-1.030) Urine Protein Negative (NEGATIVE) mg/dL Urine Glucose (UA) Normal (NEGATIVE) mg/dL Urine Ketones Negative (NEGATIVE) mg/dL Urine Occult Blood Negative (NEGATIVE) Urine Nitrite Negative (NEGATIVE) Urine Bilirubin Negative (NEGATIVE) Urine Urobilinogen 0.2 (0.2-1.0) EU/dL Ur Leukocyte Esterase Negative (NEGATIVE) Urine RBC Not seen (0-5) Urine WBC 0-5 (0-5) Ur Epithelial Cells Rare Amorphous Sediment Not seen Urine Bacteria Not seen Urine Mucus Not seen 01/08/19 01/09/19 Range/Units 21:40 05:00 WBC 14.7 H (4.5-11.0) K/uL RBC 4.19 (3.30-5.50) M/uL Hgb 13.0 (12.0-15.0) g/dL Hct 38.9 (36.0-48.0) % MCV 93 (80-98) fL MCH 31 (27-31) pg MCHC 33 (32-36) % Plt Count 142 L (150-400) K/uL Neut % (Auto) 75 H (36-66) % Lymph % (Auto) 16 L (24-44) % [place] % (Auto) 9 H (2-6) % Eos % (Auto) 0 L (2-4) % Baso % (Auto) 0 (0-1) % Sodium 141 (140-148) mmol/L Potassium 3.4 L (3.6-5.2) mmol/L Chloride 105 (100-108) mmol/L Carbon Dioxide 25 (21-32) mmol/L Anion Gap 14.4 H (5.0-14.0) mmol/L BUN 9 (7-18) mg/dL Creatinine 0.8 (0.6-1.0) mg/dL Est Cr Clr Drug Dosing TNP Estimated GFR (MDRD) > 60 (>60) Glucose 87 (74-106) mg/dL Calcium 11.0 H (8.5-10.1) mg/dL Total Bilirubin 0.4 D (0.2-1.0) mg/dL AST 18 (15-37) U/L ALT 16 (12-78) U/L Alkaline Phosphatase 94 (46-116) U/L Lactate Dehydrogenase 169 (82-234) U/L Total Protein 7.2 (6.4-8.2) g/dL Albumin 3.0 L (3.4-5.0) g/dL Globulin 4.2 H (2.3-3.5) g/dL Albumin/Globulin Ratio 0.7 L (1.2-2.2) Urine Color (YELLOW) Urine Appearance (CLEAR) Urine pH (5.0-8.0) Ur Specific [place] (1.008-1.030) Urine Protein (NEGATIVE) mg/dL Urine Glucose (UA) (NEGATIVE) mg/dL Urine Ketones (NEGATIVE) mg/dL Urine Occult Blood (NEGATIVE) Urine Nitrite (NEGATIVE) Urine Bilirubin (NEGATIVE) Urine Urobilinogen (0.2-1.0) EU/dL Ur Leukocyte Esterase (NEGATIVE) Urine RBC (0-5) Urine WBC (0-5) Ur Epithelial Cells Amorphous Sediment Urine Bacteria Urine Mucus Result Diagrams: 01/09/19 05:00 01/08/19 21:40 - Problem List (1) Anxiety SNOMED Code(s): 07667752 ICD Code: F41.9 - ANXIETY DISORDER, UNSPECIFIED Status: Acute Current Visit: Yes (2) 36 weeks gestation of SNOMED Code(s): 25290756 ICD Code: Z3A.36 - 36 WEEKS GESTATION OF Status: Acute Current Visit: Yes (3) History of delivery, currently SNOMED Code(s): 198632933, 566814644 ICD Code: O09.219 - SUPRVSN OF PREG W HISTORY OF PRE-TERM LABOR, UNSP TRIMESTER Status: Acute Current Visit: Yes (4) Elevated BP without diagnosis of hypertension SNOMED Code(s): 092476908 ICD Code: R03.0 - ELEVATED BLOOD-PRESSURE READING, W/O DIAGNOSIS OF HTN Status: Acute Current Visit: Yes (5) GDM (gestational diabetes mellitus), class A1 SNOMED Code(s): 24301123 ICD Code: O24.410 - GESTATIONAL DIABETES MELLITUS IN , DIET CONTROLLED Status: Chronic Current Visit: No Problem List Initiated/Reviewed/Updated: Yes Orders Last 24hrs: Active Orders 24 hr Category Date Time Status Admission Status [Patient Status] [ADT] Routine ADT 01/08/19 22:27 Active BPP w NST [US] Routine Exams 01/09/19 07:38 Ordered OB Follow Up 1st Gest [US] Routine Exams 01/09/19 07:38 Ordered CULTURE GROUP B STREP [RM] Routine Lab 01/09/19 07:52 Received Sodium Chloride 0.9% [Normal Saline] 1,000 ml Med 01/08/19 23:45 Active IV ASDIRECTED Medication Orders Sodium Chloride (Normal Saline) 1,000 mls @ 100 mls/hr IV ASDIRECTED STEPHANIA Assessment/Plan Comment:: 01/09/2019 33 yo came in last night with contractions due to history of a and fast labor Patient was noted to be smith and irritable along with elevated BPs but was stating she was having a lot of anxiety Her father is currently on hospice and dying in her home town and she can't currently be with him which is causing a lot of stress NST reactive Minimal contractions lots of irritability FHTs category one Labs done for elevated BP-all negative UA negative Plan- Continue to monitor for labor Continue to monitor FHTs IV fluids till discharge Will do Ultrasound-BPP, OB follow up-growth, size, fluid level Did GBS today at hospital Did start vistaril for anxiety and sleep Will decrease her work days per week and take her off work till Monday Plan discharge later today
--- NOTE | 2019-01-09 09:27 | CRLUS ---
INDICATION: Evaluate anatomy. COMPARISON: none TECHNIQUE: Real time valentin scale imaging of the fetus was performed as well as color Doppler analysis of the umbilical vessels. FINDINGS: Sonographic imaging demonstrates a single living intrauterine gestation. Fetus demonstrates a regular cardiac rate of 150 beats per minute. Fetus has a cephalic orientation. Amniotic fluid volume appears normal. Single deepest vertical pocket: 3.5 cm with amniotic fluid index 10.88. The composite ultrasound gestational age is calculated at 35 weeks 1 day with an estimated sonographic due date of 02/12/2019. This is approximately 7 days behind the due date by LMP which is 02/05/2019. The estimated weight is 2555 grams. The following biometric measurements were obtained: Biparietal diameter: 8.63 cm/34 weeks 6 days Head circumference: 31.37 cm/35 weeks 2 days Abdominal circumference: 31.02 cm/35 weeks 0 days Femur length: 6.79 cm/35 weeks 0 days The HC/AC ratio measures: 1.01 range (0.93-1.11) Limited survey demonstrates a four-chamber heart is present. The stomach, kidneys, and bladder also appear normal. The fetus was active and demonstrated normal breathing movements. There was normal flexion and extension of the trunk and extremities. The fetus scored 2 out of 2 in every category. IMPRESSION: 1. Normal OB ultrasound exam with near concordance of clinical and sonographic dating. No intrinsic abnormalities noted on limited anatomic survey. The composite ultrasound gestational age is 35 weeks 1 day and estimated sonographic due date is 02/12/2019. 2. Normal biophysical profile score 8 out of 8. Dictated by Lily Dale MD @ Jan 09 2019 9:06AM Signed by Dr. Lily Dale @ Jan 09 2019 9:25AM
--- NOTE | 2019-01-09 10:41 | CRLUS ---
INDICATION: Evaluate anatomy. COMPARISON: none TECHNIQUE: Real time valentin scale imaging of the fetus was performed as well as color Doppler and spectral Doppler analysis of the umbilical artery. Without non-stress testing. FINDINGS: Sonographic imaging demonstrates a single living intrauterine gestation. Fetus demonstrates a regular cardiac rate of 150 beats per minute. Fetus has a cephalic orientation. Amniotic fluid volume appears normal. Single deepest vertical pocket: 3.5 cm with amniotic fluid index 10.88. The composite ultrasound gestational age is calculated at 35 weeks 1 day with an estimated sonographic due date of 02/12/2019. This is approximately 7 days behind the due date by LMP which is 02/05/2019. The estimated weight is 2555 grams. The following biometric measurements were obtained: Biparietal diameter: 8.63 cm/34 weeks 6 days Head circumference: 31.37 cm/35 weeks 2 days Abdominal circumference: 31.02 cm/35 weeks 0 days Femur length: 6.79 cm/35 weeks 0 days The HC/AC ratio measures: 1.01 range (0.93-1.11) Limited survey demonstrates a four-chamber heart is present. The stomach, kidneys, and bladder also appear normal. The fetus was active and demonstrated normal breathing movements. There was normal flexion and extension of the trunk and extremities. The fetus scored 2 out of 2 in every category. IMPRESSION: 1. Normal OB ultrasound exam with near concordance of clinical and sonographic dating. No intrinsic abnormalities noted on limited anatomic survey. The composite ultrasound gestational age is 35 weeks 1 day and estimated sonographic due date is 02/12/2019. 2. Normal biophysical profile score 8 out of 8. Dictated by Lily Dale MD @ Jan 09 2019 10:33AM Signed by Dr. Lily Dale @ Jan 09 2019 10:39AM
== END 2019-01-09 09:57 | disposition home or self-care (01) ==
LOC: JP.OBCHECK 20:52 → JP.OB 22:27
PROVIDERS: ADMIT Advanced Practice Midwife; ATTEND Advanced Practice Midwife
DX: O99.343 Other mental disorders complicating pregnancy, third trimester (principal); O09.219 Supervision of pregnancy with history of pre-term labor, unspecified trimester; O24.410 Gestational diabetes mellitus in pregnancy, diet controlled; F41.9 Anxiety disorder, unspecified; R03.0 Elevated blood-pressure reading, without diagnosis of hypertension; Z79.84 Long term (current) use of oral hypoglycemic drugs; Z3A.36 36 weeks gestation of pregnancy
CPT/HCPCS: 36415; 76816; 76818; 80053; 81001; 83615; 85025; 85027; 87081; 96360; A9270; G0378; J7030; 99211

== ENCOUNTER 2019-01-29 06:56 | Inpatient (IN) | payer BC ==
[2019-01-29] MEDS ORDERED: Misoprostol 50 MCG (1/2 of 100 MCG) Tab ONE (07:58)
[2019-01-29] MEDS ORDERED: Ondansetron 4 MG/2 ML SDV IV PRN (08:07)
[2019-01-29] MEDS ORDERED: fentaNYL 100 MCG/2 ML SDV IVPUSH PRN (08:07)
[2019-01-29] MEDS ORDERED: Calcium Carbonate 500 MG Tab.Chew PO PRN (08:07)
[2019-01-29] MEDS ORDERED: Sodium Chloride 0.9% 10 ML Syringe FLUSH PRN (08:07)
--- NOTE | 2019-01-29 08:17 | PCM.LDHP ---
L&D History of Present Illness - General Date of Service: 01/29/19 Admit Problem/Dx: Patient Status Order with Admit Dx/Problem 01/29/19 08:07 Patient Status [ADT] Routine Admission Diagnosis/Problem Admission Diagnosis/Problem Gestational diabetes mellitus Source of Information: Patient History Limitations: Reports: No Limitations - History of Present Illness Introduction:: 01/29/19 33 yo is here at 39 0/7 weeks for induction of labor for gestational diabetes that has been controlled with oral medications. Her fasting blood sugars this weekend were <100 and her post meals were 120-130. Her blood pressure has been slightly elevated starting last week, lab work was done and was negative for preeclampsia and she denies any blurred vision or headaches. She has no edema. Her last baby was born early so this she has received progesterone injections. Blood type A pos, GBS neg, STI's all negative. Anticipate . 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: Reports: Polycystic Ovaries, , Spontaneous , Other (See Below) (hx delivery) : 3 Para: 1 LMP (Approximate): Other OB/BYN History: delivery 36 weeks Musculoskeletal History: Reports: Fracture Other Musculoskeletal History: Bilateral arms Endocrine/Metabolic History: Reports: Diabetes, Gestational - Infectious Disease History Infectious Disease History: Reports: Chicken Pox - Past Surgical History HEENT Surgical History: Reports: Adenoidectomy, Tonsillectomy Other Respiratory Surgeries/Procedures: smoker; 3-4 cigs/day Social & Family History - Family History Family Medical History: Noncontributory - Caffeine Use Caffeine Use: Reports: Coffee, Soda, Tea Other Caffeine Use: very little H&P Review of Systems - Review of Systems: Review Of Systems: See Below General: Reports: No Symptoms HEENT: Reports: No Symptoms Pulmonary: Reports: No Symptoms Cardiovascular: Reports: No Symptoms Gastrointestinal: Reports: No Symptoms Genitourinary: Reports: No Symptoms Musculoskeletal: Reports: No Symptoms Skin: Reports: No Symptoms Psychiatric: Reports: No Symptoms Neurological: Reports: No Symptoms Hematologic/Lymphatic: Reports: No Symptoms Immunologic: Reports: No Symptoms L&D Exam - Exam Exam: See Below - Vital Signs Vital Signs: Last Vital Signs Temp 96.6 F 01/29/19 07:56 Pulse 116 H 01/29/19 07:56 Resp 20 01/29/19 07:56 BP 130/99 H 01/29/19 07:56 Pulse Ox - OB Specific Contraction Intensity: Mild Movement: Active Heart Tones: Present Heart Tones per Min: 130 Heart Rate (FHR) Variability: Moderate (6-25 bmp) Presentation: Vertex Estimated Weight: 6-7# - Leahy Score Leahy Score Cervix Position: Midposition Leahy Score Consistency: Soft Leahy Score Effacement: 51-70% Leahy Score Dilation: 3-4 cm Leahy Score Infant's Station: -1 ,0 Leahy Score Total: 9 - Exam General: Alert, Oriented HEENT: PERRLA, Conjunctiva Clear, EOMI, Hearing Intact, Mucosa Moist & [place], Nares Patent, Normal Nasal Septum Neck: Supple, Trachea Midline Lungs: Clear to Auscultation, Normal Respiratory Effort Cardiovascular: Regular Rate, Regular Rhythm GI/Abdominal Exam: Normal Bowel Sounds, Soft, Non-Tender, No Distention, Pelvis Stable Rectal Exam: Normal Exam, Normal Rectal Tone Genitourinary: Normal external exam, Normal bimanual exam, Cervical dilitation, Enlarged uterus Back Exam: Normal Inspection, Full Range of Motion Extremities: Normal Inspection, Normal Range of Motion, Non-Tender, No Pedal Edema, Normal Capillary Refill Skin: Warm, Dry, Intact Neurological: Cranial Nerves Intact, Reflexes Equal Bilateral Psychiatric: Alert, Normal Affect, Normal Mood - Patient Data Lab Results Last 24 hrs: Laboratory Results - last 24 hr 01/29/19 01/29/19 01/29/19 Range/Units 07:07 07:07 07:10 WBC 11.2 H (4.5-11.0) K/uL RBC 4.58 (3.30-5.50) M/uL Hgb 14.2 (12.0-15.0) g/dL Hct 41.7 (36.0-48.0) % MCV 91 (80-98) fL MCH 31 (27-31) pg MCHC 34 (32-36) % Plt Count 166 (150-400) K/uL Neut % (Auto) 75 H (36-66) % Lymph % (Auto) 19 L (24-44) % [place] % (Auto) 5 (2-6) % Eos % (Auto) 1 L (2-4) % Baso % (Auto) 0 (0-1) % Urine Color Yellow (YELLOW) Urine Appearance Clear (CLEAR) Urine pH 7.0 (5.0-8.0) Ur Specific [place] 1.015 (1.008-1.030) Urine Protein Negative (NEGATIVE) mg/dL Urine Glucose (UA) Normal (NEGATIVE) mg/dL Urine Ketones Negative (NEGATIVE) mg/dL Urine Occult Blood Negative (NEGATIVE) Urine Nitrite Negative (NEGATIVE) Urine Bilirubin Negative (NEGATIVE) Urine Urobilinogen 0.2 (0.2-1.0) EU/dL Ur Leukocyte Esterase Negative (NEGATIVE) Urine RBC 0-5 (0-5) Urine WBC 0-5 (0-5) Ur Epithelial Cells Few Amorphous Sediment Not seen Urine Bacteria Not seen Urine Mucus Not seen Urine Opiates Screen Negative (NEGATIVE) Ur Oxycodone Screen Negative (NEGATIVE) Urine Methadone Screen Negative (NEGATIVE) Ur Propoxyphene Screen Negative (NEGATIVE) Ur Barbiturates Screen Negative (NEGATIVE) Ur Tricyclics Screen Negative (NEGATIVE) Ur Phencyclidine Scrn Negative (NEGATIVE) Ur Amphetamine Screen Negative (NEGATIVE) U Methamphetamines Scrn Negative (NEGATIVE) Urine MDMA Screen Negative (NEGATIVE) U Benzodiazepines Scrn Negative (NEGATIVE) U Cocaine Metab Screen Negative (NEGATIVE) U Marijuana (THC) Screen Negative (NEGATIVE) Result Diagrams: 01/29/19 07:10 - Problem List (1) Elective induction of labor planned SNOMED Code(s): 781503379 ICD Code: [id number] - Status: Acute Current Visit: Yes (2) History of delivery, currently SNOMED Code(s): 436286903, 263360698 ICD Code: O09.219 - SUPRVSN OF PREG W HISTORY OF PRE-TERM LABOR, UNSP TRIMESTER Status: Acute Current Visit: No (3) Elevated BP without diagnosis of hypertension SNOMED Code(s): 995278275 ICD Code: R03.0 - ELEVATED BLOOD-PRESSURE READING, W/O DIAGNOSIS OF HTN Status: Acute Current Visit: No (4) GDM (gestational diabetes mellitus), class A1 SNOMED Code(s): 21749867 ICD Code: O24.410 - GESTATIONAL DIABETES MELLITUS IN , DIET CONTROLLED Status: Chronic Current Visit: No Problem List Initiated/Reviewed/Updated: Yes Orders Last 24hrs: Active Orders 24 hr Category Date Time Status Patient Status [ADT] Routine ADT 01/29/19 08:07 Ordered Communication Order [RC] ASDIRECTED Care 01/29/19 08:07 Ordered Heart Tones [RC] PER UNIT ROUTINE Care 01/29/19 08:07 Ordered Notify Provider Vital Signs [RC] PRN Care 01/29/19 08:09 Ordered Notify Provider [RC] PRN Care 01/29/19 08:07 Ordered Up ad [place] [RC] ASDIRECTED Care 01/29/19 08:07 Ordered Vital Signs [RC] PER UNIT ROUTINE Care 01/29/19 08:07 Ordered Regular Diet [DIET] Diet 01/29/19 Breakfast Ordered Calcium Carbonate [Tums] Med 01/29/19 08:07 Ordered 1,000 mg PO Q2HR PRN Ondansetron [Zofran] Med 01/29/19 08:07 Ordered 4 mg IV Q4H PRN Oxytocin/Normal Saline [Pitocin in NS 20 Units/1,000 ML Med 01/29/19 08:11 Ordered ] 20 unit in 1,000 ml IV ONETIME Sodium Chloride 0.9% [Saline Flush] Med 01/29/19 08:07 Ordered 10 ml FLUSH ASDIRECTED PRN fentaNYL [Sublimaze] Med 01/29/19 08:07 Ordered 100 mcg IVPUSH Q1H PRN Saline Lock Insert [OM.PC] Routine Oth 01/29/19 08:07 Ordered Resuscitation Status Routine Resus Stat 01/29/19 08:07 Ordered Medication Orders Calcium Carbonate/Glycine (Tums) 1,000 mg PO Q2HR PRN PRN Reason: Indigestion Fentanyl (Sublimaze) 100 mcg IVPUSH Q1H PRN PRN Reason: Pain (moderate 4-6) Ondansetron HCl (Zofran) 4 mg IV Q4H PRN PRN Reason: Nausea/Vomiting Sodium Chloride (Saline Flush) 10 ml FLUSH ASDIRECTED PRN PRN Reason: Keep Vein Open Assessment/Plan Comment:: 01/29/19 Assessment: 33 yo here for planned induction at 39 weeks GDM controlled with oral medication Hx of prior vaginal delivery SVE Plan: 50 mcg Cytotec was inserted vaginally for induction of labor Anticipate Reassess around noon for possible AROM or another Cytotec insertion or sooner if needed Plans to use Nitrous for pain control
--- NOTE | 2019-01-29 12:25 | PCM.PNLD ---
<Awilda De Paz - Last Filed: 01/29/19 12:23> Labor Progress Note - VS & Meds Vital Signs: Last Vital Signs Temp 35.9 C 01/29/19 08:00 Pulse 89 01/29/19 12:00 Resp 20 01/29/19 12:00 BP 129/85 01/29/19 12:00 Pulse Ox 99 01/29/19 12:00 Active Medications: Current Medications Calcium Carbonate/Glycine (Tums) 1,000 mg PO Q2H PRN PRN Reason: Indigestion Fentanyl (Sublimaze) 100 mcg IVPUSH Q1H PRN PRN Reason: Pain (moderate 4-6) Oxytocin/Sodium Chloride (Pitocin In Ns 20 Units/1,000 Ml) 20 unit in 1,000 mls @ 999 mls/hr IV ASDIRECTED STEPHANIA; Protocol Ondansetron HCl (Zofran) 4 mg IV Q4H PRN PRN Reason: Nausea/Vomiting Sodium Chloride (Saline Flush) 10 ml FLUSH ASDIRECTED PRN PRN Reason: Keep Vein Open Discontinued Medications Misoprostol (Cytotec) Confirm Administered Dose 50 mcg .ROUTE .STK-MED ONE Stop: 01/29/19 07:59 Last Admin: 01/29/19 08:07 Dose: 50 mcg - Uterine Contractions Uterine Monitoring Mode: External [place] Contraction Frequency (min): 2-5 Contraction Duration (sec): 40-50 Contraction Intensity: Mild Uterine Resting Tone: Soft - Monitoring Monitor Mode: External Ultrasound Heart Rate (FHR) Variability: Moderate (6-25 bmp) Accelerations: Present, 15x15 Decelerations: None Strip Review: Category I - Vaginal Exam Dilation (cm): 3 Effacement (Percent): 70 Station: -1 Sterile Vaginal Exam Performed By: Awilda De Paz Vaginal Exam Comment: cytotec 50mg placed by provider at 0802 - Labor Progress (Free Text) Labor Progress: 01/29/19 Patient progressed to 3-4/80/-1. AROM completed with scant amount of clear fluid. Patient feels contractions but does not rate them as painful yet. Category 1 tracing. <Sharon Gudino - Last Filed: 02/01/19 08:35> Labor Progress Note - VS & Meds Vital Signs: Last Vital Signs Temp 96.2 F 01/30/19 13:14 Pulse 69 01/30/19 13:14 Resp 18 01/30/19 13:14 BP 110/65 01/30/19 13:14 Pulse Ox 99 01/30/19 13:14 Active Medications: Current Medications Discontinued Medications Acetaminophen (Tylenol Bulk Bottle) 325 - 650 mg PO Q4H PRN PRN Reason: Pain Benzocaine ([id number] 20% [place]) 0 gm TOP ONETIME ONE Stop: 01/29/19 17:06 Last Admin: 01/29/19 20:17 Dose: 1 applic Benzocaine (Hadl-A-Rhmfkyf 20% [place]) 0 gm TOP Q4H PRN PRN Reason: Other Calcium Carbonate/Glycine (Tums) 1,000 mg PO Q2H PRN PRN Reason: Indigestion Emollient Ointment (Lansinoh Hpa) 0 gm TOP ONETIME ONE Stop: 01/29/19 17:06 Last Admin: 01/29/19 20:17 Dose: 1 applic Emollient Ointment (Lansinoh Hpa) 0 gm TOP ASDIRECTED PRN PRN Reason: Other Fentanyl (Sublimaze) 100 mcg IVPUSH Q1H PRN PRN Reason: Pain (moderate 4-6) Oxytocin/Sodium Chloride (Pitocin In Ns 20 Units/1,000 Ml) 20 unit in 1,000 mls @ 999 mls/hr IV ASDIRECTED STEPHANIA; Protocol Last Admin: 01/29/19 17:51 Dose: 999 mls/hr, 999 mls/hr Ibuprofen (Motrin Bulk Bottle) 600 mg PO Q6H PRN PRN Reason: Pain Last Admin: 01/29/19 20:19 Dose: 3 tab Lidocaine HCl (Xylocaine 1%) Confirm Administered Dose 50 ml .ROUTE .STK-MED ONE Stop: 01/29/19 14:23 Last Admin: 01/29/19 18:58 Dose: Not Given Misoprostol (Cytotec) Confirm Administered Dose 50 mcg .ROUTE .STK-MED ONE Stop: 01/29/19 07:59 Last Admin: 01/29/19 08:07 Dose: 50 mcg Ondansetron HCl (Zofran) 4 mg IV Q4H PRN PRN Reason: Nausea/Vomiting Last Admin: 01/29/19 15:46 Dose: 4 mg Sodium Chloride (Saline Flush) 10 ml FLUSH ASDIRECTED PRN PRN Reason: Keep Vein Open Witch Daphne (Tucks) 1 pad TOP ONETIME ONE Stop: 01/29/19 17:06 Last Admin: 01/29/19 20:18 Dose: 1 pad Witch Daphne (Tucks) 1 pad TOP ASDIRECTED PRN PRN Reason: Other - Labor Progress (Free Text) Labor Progress: I personally performed or re-performed the physical examination and medical decision making. I have verified all student documentation or findings, including history, physical exam and/or medical decision making. SOLOMON Zuñiga APRN
[2019-01-29] MEDS ORDERED: Lidocaine 1% 50 ML MDV ONE (14:22)
--- NOTE | 2019-01-29 16:12 | PCM.PNLD ---
<Awilda De Paz - Last Filed: 01/29/19 16:10> Labor Progress Note - VS & Meds Vital Signs: Last Vital Signs Temp 35.9 C 01/29/19 08:00 Pulse 89 01/29/19 12:00 Resp 20 01/29/19 12:00 BP 129/85 01/29/19 12:00 Pulse Ox 99 01/29/19 12:00 Active Medications: Current Medications Calcium Carbonate/Glycine (Tums) 1,000 mg PO Q2H PRN PRN Reason: Indigestion Fentanyl (Sublimaze) 100 mcg IVPUSH Q1H PRN PRN Reason: Pain (moderate 4-6) Oxytocin/Sodium Chloride (Pitocin In Ns 20 Units/1,000 Ml) 20 unit in 1,000 mls @ 999 mls/hr IV ASDIRECTED STEPHANIA; Protocol Ondansetron HCl (Zofran) 4 mg IV Q4H PRN PRN Reason: Nausea/Vomiting Last Admin: 01/29/19 15:46 Dose: 4 mg Sodium Chloride (Saline Flush) 10 ml FLUSH ASDIRECTED PRN PRN Reason: Keep Vein Open Discontinued Medications Lidocaine HCl (Xylocaine 1%) Confirm Administered Dose 50 ml .ROUTE .STK-MED ONE Stop: 01/29/19 14:23 Misoprostol (Cytotec) Confirm Administered Dose 50 mcg .ROUTE .STK-MED ONE Stop: 01/29/19 07:59 Last Admin: 01/29/19 08:07 Dose: 50 mcg - Uterine Contractions Uterine Monitoring Mode: External [place] Contraction Frequency (min): 2 Contraction Duration (sec): 20-50 Contraction Intensity: Moderate Uterine Resting Tone: Soft - Monitoring Monitor Mode: External Ultrasound Heart Rate (FHR) Variability: Moderate (6-25 bmp) Accelerations: Present, 15x15 Decelerations: Early Strip Review: Category I - Vaginal Exam Dilation (cm): 7 Effacement (Percent): 90 Station: -1 Cervical Position: Midposition Sterile Vaginal Exam Performed By: Awilda De Paz Vaginal Exam Comment: cytotec 50mg placed by provider at 0802 - Labor Progress (Free Text) Labor Progress: 01/29/19 Pt progressed nicely in the tub this afternoon. SVE 7/90/-1. She is using nitrous now and coping well with labor. Anticipate . Early decelerations noted with contractions. <Sharon Gudino Neelam - Last Filed: 02/01/19 08:36> Labor Progress Note - VS & Meds Vital Signs: Last Vital Signs Temp 96.2 F 01/30/19 13:14 Pulse 69 01/30/19 13:14 Resp 18 01/30/19 13:14 BP 110/65 01/30/19 13:14 Pulse Ox 99 01/30/19 13:14 Active Medications: Current Medications Discontinued Medications Acetaminophen (Tylenol Bulk Bottle) 325 - 650 mg PO Q4H PRN PRN Reason: Pain Benzocaine (Qsag-[id number]-Rvwcmbp 20% [place]) 0 gm TOP ONETIME ONE Stop: 01/29/19 17:06 Last Admin: 01/29/19 20:17 Dose: 1 applic Benzocaine (Fxxe-L-Gknjobw 20% [place]) 0 gm TOP Q4H PRN PRN Reason: Other Calcium Carbonate/Glycine (Tums) 1,000 mg PO Q2H PRN PRN Reason: Indigestion Emollient Ointment (Lansinoh Hpa) 0 gm TOP ONETIME ONE Stop: 01/29/19 17:06 Last Admin: 01/29/19 20:17 Dose: 1 applic Emollient Ointment (Lansinoh Hpa) 0 gm TOP ASDIRECTED PRN PRN Reason: Other Fentanyl (Sublimaze) 100 mcg IVPUSH Q1H PRN PRN Reason: Pain (moderate 4-6) Oxytocin/Sodium Chloride (Pitocin In Ns 20 Units/1,000 Ml) 20 unit in 1,000 mls @ 999 mls/hr IV ASDIRECTED STEPHANIA; Protocol Last Admin: 01/29/19 17:51 Dose: 999 mls/hr, 999 mls/hr Ibuprofen (Motrin Bulk Bottle) 600 mg PO Q6H PRN PRN Reason: Pain Last Admin: 01/29/19 20:19 Dose: 3 tab Lidocaine HCl (Xylocaine 1%) Confirm Administered Dose 50 ml .ROUTE .STK-MED ONE Stop: 01/29/19 14:23 Last Admin: 01/29/19 18:58 Dose: Not Given Misoprostol (Cytotec) Confirm Administered Dose 50 mcg .ROUTE .STK-MED ONE Stop: 01/29/19 07:59 Last Admin: 01/29/19 08:07 Dose: 50 mcg Ondansetron HCl (Zofran) 4 mg IV Q4H PRN PRN Reason: Nausea/Vomiting Last Admin: 01/29/19 15:46 Dose: 4 mg Sodium Chloride (Saline Flush) 10 ml FLUSH ASDIRECTED PRN PRN Reason: Keep Vein Open Witch Daphne (Tucks) 1 pad TOP ONETIME ONE Stop: 01/29/19 17:06 Last Admin: 01/29/19 20:18 Dose: 1 pad Witch [place]aphne (Tucks) 1 pad TOP ASDIRECTED PRN PRN Reason: Other - Labor Progress (Free Text) Labor Progress: I personally performed or re-performed the physical examination and medical decision making. I have verified all student documentation or findings, including history, physical exam and/or medical decision making. Sharon Gudino APRN, SOLOMON, CNM
[2019-01-29] MEDS ORDERED: Witch Hazel Medicated Pads 100/Jar TOP PRN (17:05)
[2019-01-29] MEDS ORDERED: Witch Hazel Medicated Pads 100/Jar TOP ONE (17:05)
[2019-01-29] MEDS ORDERED: Benzocaine 20% Top Spray 56 GM Bottle TOP PRN (17:05)
[2019-01-29] MEDS ORDERED: Acetaminophen 325 MG Tab, 50 Tab Bulk Bottle PO PRN (17:05)
[2019-01-29] MEDS ORDERED: Benzocaine 20% Top Spray 56 GM Bottle TOP ONE (17:05)
[2019-01-29] MEDS ORDERED: Ibuprofen 200 MG Tab, 24 Tab Bulk Bottle PO PRN (17:05)
[2019-01-29] MEDS ORDERED: Lanolin 100% Cream 40 GM Tube TOP PRN (17:05)
[2019-01-29] MEDS ORDERED: Lanolin 100% Cream 40 GM Tube TOP ONE (17:05)
--- NOTE | 2019-01-29 17:15 | PCM.DEL ---
L & D Note - General Info Date of Service: 01/29/19 Mother's Due Date: 02/05/19 - Delivery Note Labor: Augmented by ARM Cervical Ripening Method: Misoprostil Delivery Outcome: Livebirth Delivery Method: Spontaneous Vaginal Delivery-Single Infant Delivery Mode: Spontaneous Presentation: Right Occiput Anterior (BEN) Nuchal Cord: None Anesthesia Type: Nitrous Oxide Episiotomy Type: None Laceration: None Placenta: Intact, Spontaneous Cord: 3 Vessels Estimated Blood Loss: 100 Resuscitation Needed: No : Stimulated Provider: Sharon Gudino Score 1 min: 8 Score 5 min: 9 Second Stage Interventions: Reports: Second Nurse Assessed Progress of Descent, Second Nurse Reviewed Contraction Pattern, Second Nurse Reviewed Heart Tones, Encouragement Given, Pushing Effectively, Pushing, Pulls Own Legs Back Delivery Comments (Free Text/Narrative):: 01/29/19 33 yo G3 now P2 delivered vaginally without complications after a cytotec induction augmented by AROM of clear fluid. Baby girl born at 1648 spontaneously in BEN position. She was placed directly on mothers chest and stimulated. There was no nuchal cord. Apgars 8,9. Weight 6 lb 2 oz. Placenta delivered spontaneously intact with a 3 vessel cord. EBL 100 mL. FF. Perineum intact, there were no vaginal or cervical lacerations. Stages of labor: 1- [id number] 2- [id number] 3- 6346-1951 Induction Criteria - Leahy Score Leahy Score Dilation: 3-4 cm Leahy Score Effacement: 60-70% Leahy Score 's Station: -1 ,0 Leahy Score Consistency: Soft Leahy Score Cervix Position: Midposition Leahy Score Total: 9 Leahy Score Presenting Part: Reports: Cephalic - Induction Gestational Age >/= 39 wks: Yes Medical Indication: Gestational diabetes Estimated Pelvis: Reports: Adequate Reassuring Monitoring Strip: Yes Absence of Tachy Systole: Yes - Augmentation Estimated Pelvis: Reports: Adequate Weight Estimated:: Reports: AGA Estimated Weight if LGA: 6 lb Reassuring Monitoring Strip: Yes Absence of Tachy Systole: Yes - General Info Date of Service: 01/29/19 Functional Status: Reports: Pain Controlled - Review of Systems General: Reports: No Symptoms HEENT: Reports: No Symptoms Pulmonary: Reports: No Symptoms Cardiovascular: Reports: No Symptoms Gastrointestinal: Reports: No Symptoms Genitourinary: Reports: No Symptoms Musculoskeletal: Reports: No Symptoms Skin: Reports: No Symptoms Neurological: Reports: No Symptoms Psychiatric: Reports: No Symptoms - Patient Data Vitals - Most Recent: Last Vital Signs Temp 96.6 F 01/29/19 08:00 Pulse 89 01/29/19 12:00 Resp 20 01/29/19 12:00 BP 129/85 01/29/19 12:00 Pulse Ox 99 01/29/19 12:00 Weight - Most Recent: 168 lb 15.996 oz Lab Results Last 24 Hours: Laboratory Results - last 24 hr 01/29/19 01/29/19 01/29/19 Range/Units 07:07 07:07 07:10 WBC 11.2 H (4.5-11.0) K/uL RBC 4.58 (3.30-5.50) M/uL Hgb 14.2 (12.0-15.0) g/dL Hct 41.7 (36.0-48.0) % MCV 91 (80-98) fL MCH 31 (27-31) pg MCHC 34 (32-36) % Plt Count 166 (150-400) K/uL Neut % (Auto) 75 H (36-66) % Lymph % (Auto) 19 L (24-44) % [place] % (Auto) 5 (2-6) % Eos % (Auto) 1 L (2-4) % Baso % (Auto) 0 (0-1) % Urine Color Yellow (YELLOW) Urine Appearance Clear (CLEAR) Urine pH 7.0 (5.0-8.0) Ur Specific [place] 1.015 (1.008-1.030) Urine Protein Negative (NEGATIVE) mg/dL Urine Glucose (UA) Normal (NEGATIVE) mg/dL Urine Ketones Negative (NEGATIVE) mg/dL Urine Occult Blood Negative (NEGATIVE) Urine Nitrite Negative (NEGATIVE) Urine Bilirubin Negative (NEGATIVE) Urine Urobilinogen 0.2 (0.2-1.0) EU/dL Ur Leukocyte Esterase Negative (NEGATIVE) Urine RBC 0-5 (0-5) Urine WBC 0-5 (0-5) Ur Epithelial Cells Few Amorphous Sediment Not seen Urine Bacteria Not seen Urine Mucus Not seen Urine Opiates Screen Negative (NEGATIVE) Ur Oxycodone Screen Negative (NEGATIVE) Urine Methadone Screen Negative (NEGATIVE) Ur Propoxyphene Screen Negative (NEGATIVE) Ur Barbiturates Screen Negative (NEGATIVE) Ur Tricyclics Screen Negative (NEGATIVE) Ur Phencyclidine Scrn Negative (NEGATIVE) Ur Amphetamine Screen Negative (NEGATIVE) U Methamphetamines Scrn Negative (NEGATIVE) Urine MDMA Screen Negative (NEGATIVE) U Benzodiazepines Scrn Negative (NEGATIVE) U Cocaine Metab Screen Negative (NEGATIVE) U Marijuana (THC) Screen Negative (NEGATIVE) Med Orders - Current: Current Medications Calcium Carbonate/Glycine (Tums) 1,000 mg PO Q2H PRN PRN Reason: Indigestion Fentanyl (Sublimaze) 100 mcg IVPUSH Q1H PRN PRN Reason: Pain (moderate 4-6) Oxytocin/Sodium Chloride (Pitocin In Ns 20 Units/1,000 Ml) 20 unit in 1,000 mls @ 999 mls/hr IV ASDIRECTED STEPHANIA; Protocol Ondansetron HCl (Zofran) 4 mg IV Q4H PRN PRN Reason: Nausea/Vomiting Last Admin: 01/29/19 15:46 Dose: 4 mg Sodium Chloride (Saline Flush) 10 ml FLUSH ASDIRECTED PRN PRN Reason: Keep Vein Open Discontinued Medications Lidocaine HCl (Xylocaine 1%) Confirm Administered Dose 50 ml .ROUTE .STK-MED ONE Stop: 01/29/19 14:23 Misoprostol (Cytotec) Confirm Administered Dose 50 mcg .ROUTE .STK-MED ONE Stop: 01/29/19 07:59 Last Admin: 01/29/19 08:07 Dose: 50 mcg - Exam General: Alert, Oriented HEENT: Pupils Equal, Pupils Reactive, EOMI, Mucous Membr. Moist/[place] Neck: Supple Lungs: Clear to Auscultation, Normal Respiratory Effort Cardiovascular: Regular Rate, Regular Rhythm GI/Abdominal Exam: Normal Bowel Sounds, Soft, Non-Tender, No Organomegaly, Pelvis Stable (Female) Exam: Normal External Exam, Normal Bimanual Exam, Cervical Dilatation, Vaginal Bleeding. No: Cervical Lesions, Vaginal Tears Back Exam: Normal Inspection, Full Range of Motion Extremities: Normal Inspection, Normal Range of Motion, Non-Tender, No Pedal Edema, Normal Capillary Refill Skin: Warm, Dry, Intact Wound/Incisions: Healing Well Neurological: No New Focal Deficit Psy/Mental Status: Alert, Normal Affect, Normal Mood - Problem List & Annotations (1) Elective induction of labor planned SNOMED Code(s): 785973683 Code(s): VQO7666 - Status: Acute Current Visit: Yes (2) History of delivery, currently SNOMED Code(s): 397580517, 159563230 Code(s): O09.219 - SUPRVSN OF PREG W HISTORY OF PRE-TERM LABOR, UNSP TRIMESTER Status: Acute Current Visit: No (3) Elevated BP without diagnosis of hypertension SNOMED Code(s): 464101459 Code(s): R03.0 - ELEVATED BLOOD-PRESSURE READING, W/O DIAGNOSIS OF HTN Status: Acute Current Visit: No (4) GDM (gestational diabetes mellitus), class A1 SNOMED Code(s): 22661481 Code(s): O24.410 - GESTATIONAL DIABETES MELLITUS IN , DIET CONTROLLED Status: Chronic Current Visit: No (5) Vaginal delivery SNOMED Code(s): 875973844 Code(s): O80 - ENCOUNTER FOR FULL-TERM UNCOMPLICATED DELIVERY Status: Acute Current Visit: Yes (6) started SNOMED Code(s): 967935947 Code(s): GDG7822 - Status: Acute Current Visit: Yes - Problem List Review Problem List Initiated/Reviewed/Updated: Yes - My Orders Last 24 Hours: My Active Orders 01/29/19 08:07 Patient Status [ADT] Routine Communication Order [RC] ASDIRECTED Notify Provider [RC] PRN Up ad Belle [RC] ASDIRECTED Vital Signs [RC] PER UNIT ROUTINE Calcium Carbonate [Tums] 1,000 mg PO Q2H PRN Ondansetron [Zofran] 4 mg IV Q4H PRN Sodium Chloride 0.9% [Saline Flush] 10 ml FLUSH ASDIRECTED PRN fentaNYL [Sublimaze] 100 mcg IVPUSH Q1H PRN Saline Lock Insert [OM.PC] Routine Resuscitation Status Routine 01/29/19 08:09 Notify Provider Vital Signs [RC] PRN 01/29/19 08:11 Oxytocin/Normal Saline [Pitocin in NS 20 Units/1,000 ML] 20 unit in 1,000 ml IV ASDIRECTED 01/29/19 16:14 Communication Order [RC] Per Unit Routine Communication Order [RC] Per Unit Routine Communication Order [RC] Per Unit Routine Nitrous Oxide Delivery [RC] ASDIRECTED Oxygen Therapy [RC] ASDIRECTED Pulse Oximetry [RC] ASDIRECTED Verify Patient Consent Obtain [RC] ASDIRECTED Vital Signs [RC] PER UNIT ROUTINE 01/29/19 17:05 Consult to [employer] Cutting Machine Tender [CONS] Routine Acetaminophen [Tylenol Bulk Bottle] See Dose Instructions PO Q4H PRN Benzocaine [Wtkq-T-Epwxvdz 20% [place]] 1 gm TOP Q4H PRN Benzocaine [Melr-Y-Usqmthq 20% [place]] See Dose Instructions TOP ONETIME ONE Ibuprofen [Motrin Bulk Bottle] 600 mg PO Q6H PRN Lanolin [Lansinoh HPA] 1 gm TOP ONETIME ONE Lanolin [Lansinoh HPA] 40 gm TOP ASDIRECTED PRN Witch Daphne [Tucks] 1 pad TOP ASDIRECTED PRN Witch Daphne [Tucks] 1 pad TOP ONETIME ONE Assess Lochia [WOMSER] Per Unit Routine Assess Uterine Involution [WOMSER] Per Unit Routine DVT/VTE Prophylaxis Reflex [OM.PC] Routine 01/29/19 17:06 Patient Status [ADT] Routine Vital Signs [RC] PFP Sitz Bath [OM.PC] Per Unit Routine 01/29/19 17:07 VTE/DVT Education [RC] Click to Edit Ice Therapy [OM.PC] Per Unit Routine Perineal Care [OM.PC] Per Unit Routine Peripheral IV Discontinue [OM.PC] Routine 01/29/19 Breakfast Regular Diet [DIET] 01/30/19 06:00 CBC WITH AUTO DIFF [HEME] Routine - Assessment Assessment:: 01/29/19 33 yo with of female Perineum intact EBL 100 mL, FF Gestational diabetic with well controlled sugars on oral medication - Plan Plan:: 01/29/19 Assessment: 33 yo here for planned induction at 39 weeks GDM controlled with oral medication Hx of prior vaginal delivery SVE Plan: 50 mcg Cytotec was inserted vaginally for induction of labor Anticipate Reassess around noon for possible AROM or another Cytotec insertion or sooner if needed Plans to use Nitrous for pain control 01/29/19 Routine cares [facility] kit for pain support Anticipate 24-48 hour stay
--- NOTE | 2019-01-30 08:19 | PCM.PNPP ---
- General Info Date of Service: 01/30/19 Functional Status: Reports: Pain Controlled - Review of Systems General: Reports: No Symptoms HEENT: Reports: No Symptoms Pulmonary: Reports: No Symptoms Cardiovascular: Reports: No Symptoms Gastrointestinal: Reports: No Symptoms Genitourinary: Reports: No Symptoms Musculoskeletal: Reports: No Symptoms Skin: Reports: No Symptoms Neurological: Reports: No Symptoms Psychiatric: Reports: No Symptoms - General Info Date of Service: 01/30/19 - Patient Data Vital Signs - Most Recent: Last Vital Signs Temp 35.9 C 01/30/19 04:00 Pulse 76 01/30/19 04:00 Resp 16 01/30/19 04:00 BP 118/60 01/30/19 04:00 Pulse Ox 97 01/30/19 04:00 Weight - Most Recent: 76.657 kg I&O - Last 24 Hours: Intake & Output 01/29/19 01/30/19 01/30/19 22:59 06:59 14:59 Intake Total 450 Balance 450 Lab Results - Last 24 Hours: Laboratory Results - last 24 hr 01/30/19 Range/Units 05:40 WBC 17.7 H (4.5-11.0) K/uL RBC 4.08 (3.30-5.50) M/uL Hgb 12.7 (12.0-15.0) g/dL Hct 37.3 (36.0-48.0) % MCV 91 (80-98) fL MCH 31 (27-31) pg MCHC 34 (32-36) % Plt Count 147 L (150-400) K/uL Neut % (Auto) 73 H (36-66) % Lymph % (Auto) 18 L (24-44) % [place] % (Auto) 9 H (2-6) % Eos % (Auto) 0 L (2-4) % Baso % (Auto) 0 (0-1) % Med Orders - Current: Current Medications Acetaminophen (Tylenol Bulk Bottle) 325 - 650 mg PO Q4H PRN PRN Reason: Pain Benzocaine (Boqj-U-Idhkekk 20% [place]) 0 gm TOP Q4H PRN PRN Reason: Other Calcium Carbonate/Glycine (Tums) 1,000 mg PO Q2H PRN PRN Reason: Indigestion Emollient Ointment (Lansinoh Hpa) 0 gm TOP ASDIRECTED PRN PRN Reason: Other Fentanyl (Sublimaze) 100 mcg IVPUSH Q1H PRN PRN Reason: Pain (moderate 4-6) Oxytocin/Sodium Chloride (Pitocin In Ns 20 Units/1,000 Ml) 20 unit in 1,000 mls @ 999 mls/hr IV ASDIRECTED STEPHANIA; Protocol Last Admin: 01/29/19 17:51 Dose: 999 mls/hr, 999 mls/hr Ibuprofen (Motrin Bulk Bottle) 600 mg PO Q6H PRN PRN Reason: Pain Last Admin: 01/29/19 20:19 Dose: 3 tab Ondansetron HCl (Zofran) 4 mg IV Q4H PRN PRN Reason: Nausea/Vomiting Last Admin: 01/29/19 15:46 Dose: 4 mg Sodium Chloride (Saline Flush) 10 ml FLUSH ASDIRECTED PRN PRN Reason: Keep Vein Open Kaitlin Hewittel (Tucks) 1 pad TOP ASDIRECTED PRN PRN Reason: Other Discontinued Medications Benzocaine (Wcur-L-Wldykpz 20% [place]) 0 gm TOP ONETIME ONE Stop: 01/29/19 17:06 Last Admin: 01/29/19 20:17 Dose: 1 applic Emollient Ointment (Lansinoh Hpa) 0 gm TOP ONETIME ONE Stop: 01/29/19 17:06 Last Admin: 01/29/19 20:17 Dose: 1 applic Lidocaine HCl (Xylocaine 1%) Confirm Administered Dose 50 ml .ROUTE .STK-MED ONE Stop: 01/29/19 14:23 Last Admin: 01/29/19 18:58 Dose: Not Given Misoprostol (Cytotec) Confirm Administered Dose 50 mcg .ROUTE .STK-MED ONE Stop: 01/29/19 07:59 Last Admin: 01/29/19 08:07 Dose: 50 mcg Witch Daphne (Tucks) 1 pad TOP ONETIME ONE Stop: 01/29/19 17:06 Last Admin: 01/29/19 20:18 Dose: 1 pad - Infant Interaction Disposition, : [place] in Room with Family Interaction: Holding Infant Feeding: Breastfed ; Nursed Well Support Person: - Recovery Exam Fundal Tone: Firm Fundal Level: At Umbilicus Fundal Placement: Midline Lochia Amount: Moderate Lochia Color: Rubra/Red Perineum Description: Intact, Minimal Bruising/Swelling Bladder Status: Voiding - Exam General: Alert, Oriented HEENT: Pupils Equal Neck: Supple Lungs: Clear to Auscultation, Normal Respiratory Effort Cardiovascular: Regular Rate, Regular Rhythm GI/Abdominal Exam: Normal Bowel Sounds, Soft, Non-Tender, No Distention, Pelvis Stable Extremities: Normal Inspection, Normal Range of Motion, Non-Tender, No Pedal Edema, Normal Capillary Refill Skin: Warm, Dry, Intact Neurological: No New Focal Deficit Psy/Mental Status: Alert, Normal Affect, Normal Mood - Problem List & Annotations (1) started SNOMED Code(s): 983084184 Code(s): TAA4851 - Status: Acute Current Visit: Yes (2) Elective induction of labor planned SNOMED Code(s): 842755965 Code(s): BZK1096 - Status: Acute Current Visit: Yes (3) Vaginal delivery SNOMED Code(s): 910996740 Code(s): O80 - ENCOUNTER FOR FULL-TERM UNCOMPLICATED DELIVERY Status: Acute Current Visit: Yes (4) GDM (gestational diabetes mellitus), class A1 SNOMED Code(s): 42453662 Code(s): O24.410 - GESTATIONAL DIABETES MELLITUS IN , DIET CONTROLLED Status: Chronic Current Visit: No - Problem List Review Problem List Initiated/Reviewed/Updated: Yes - Assessment Assessment:: 01/29/19 33 yo with of female Perineum intact EBL 100 mL, FF Gestational diabetic with well controlled sugars on oral medication 01/30/19 PP day 1 Hgb 12.7 Pain controlled going very well - Plan Plan:: 01/29/19 Assessment: 33 yo here for planned induction at 39 weeks GDM controlled with oral medication Hx of prior vaginal delivery SVE /-1 Plan: 50 mcg Cytotec was inserted vaginally for induction of labor Anticipate Reassess around noon for possible AROM or another Cytotec insertion or sooner if needed Plans to use Nitrous for pain control 01/29/19 Routine cares [facility] kit for pain support Anticipate 24-48 hour stay 01/30/19 Continued support today Routine cares Pt desires discharge home today, will plan for this as long as baby's bili is good this evening
[2019-01-30 13:17] VITALS: BP 110/65
== END 2019-01-30 17:30 | disposition home or self-care (01) | DRG 280 ==
LOC: JP.OB 06:56 → OBSVTOIN 16:48 → JP.MS 18:39
PROVIDERS: ADMIT Nurse Practitioner Family; ATTEND Nurse Practitioner Family
PROC: HZ2ZZZZ Detoxification Services for Substance Abuse Treatment (ICD-10-PCS; principal; 2019-01-26)
DX: K70.10 Alcoholic hepatitis without ascites (principal); F10.239 Alcohol dependence with withdrawal, unspecified; I82.502 Chronic embolism and thrombosis of unspecified deep veins of left lower extremity; Z68.41 Body mass index [BMI] 40.0-44.9, adult; K70.30 Alcoholic cirrhosis of liver without ascites; E87.6 Hypokalemia; E83.42 Hypomagnesemia; R79.1 Abnormal coagulation profile; F32.9 Major depressive disorder, single episode, unspecified; F41.9 Anxiety disorder, unspecified; G43.909 Migraine, unspecified, not intractable, without status migrainosus; J45.909 Unspecified asthma, uncomplicated; F17.210 Nicotine dependence, cigarettes, uncomplicated; E66.9 Obesity, unspecified; E86.0 Dehydration; Z71.41 Alcohol abuse counseling and surveillance of alcoholic; Z79.01 Long term (current) use of anticoagulants; Z79.899 Other long term (current) drug therapy
CPT/HCPCS: 36415; 59409; 80305-QW; 81001; 85025; 99211; A9270-GY; J2405; J2590